=== PATIENT | female | born 1980 | race Caucasian/White ===

== ENCOUNTER 2018-12-05 14:08 | Emergency (ER) | payer OTHER ==
[~2018-12-05] VITALS: Ht 170.2 cm; Wt 81.1 kg
[~2018-12-05 14:08] MED LIST: ATEN25TA PO; BACL-19 PO; BUPR1PAT7 TD; IBUP200T49 PO; OMEP-110 PO; TIZA4CAP PO
[2018-12-05] MEDS ORDERED: KETOROLAC 30 MG/1 ML IM ONE (15:00)
--- NOTE | 2018-12-05 16:40 | NUR ---
UTILIZATION REVIEW NURSE: PT TO ED ROOM TR02 FROM LOBBY AT THIS TIME
[2018-12-05] MEDS ORDERED: KETOROLAC 30 MG/1 ML ONE (17:03)
--- NOTE | 2018-12-05 17:13 | NUR ---
AFTER MEDICATED PER ORDERS AMBULATED WITHOUT ASSISTANCE TO BATHROOM
[2018-12-05 17:23] VITALS: BP 119/79
[2018-12-05] MEDS ORDERED: ONDANSETRON ODT 4 MG ONE (17:38)
[2018-12-05] MEDS ORDERED: METHOCARBAMOL 750 MG TABLET ONE (17:38)
[2018-12-05] MEDS ORDERED: HYDROmorphone 1 MG/ML, 1ML ONE (17:39)
[2018-12-05] MEDS ORDERED: HYDROmorphone 1 MG/ML, 1ML IM ONE (18:00)
[2018-12-05] MEDS ORDERED: ONDANSETRON ODT 4 MG PO ONE (18:00)
[2018-12-05] MEDS ORDERED: METHOCARBAMOL 750 MG TABLET PO ONE (18:00)
--- NOTE | 2018-12-05 18:17 | NUR ---
Patient/Caregiver given discharge instructions and they have confirmed that they understand the instructions. Patient ambulatory with steady gait.
== END 2018-12-05 18:19 | disposition home or self-care (01) ==
LOC: ED 18:13
DX: G89.29 Other chronic pain (principal); M54.5 Low back pain; M51.26 Other intervertebral disc displacement, lumbar region; F17.200 Nicotine dependence, unspecified, uncomplicated
CPT/HCPCS: 72110; 96372; 99283; J1170; J1885; Q0162

== ENCOUNTER 2020-03-30 17:38 | Emergency (ER) | payer OTHER ==
[~2020-03-30] VITALS: Ht 172.7 cm; Wt 79.8 kg
--- NOTE | 2020-03-30 18:30 | NUR ---
PLACED IN C-COLLAR IN TRIAGE
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
--- NOTE | 2020-03-30 19:28 | NUR ---
TO CT SCAN
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
--- NOTE | 2020-03-30 19:57 | NUR ---
BACK TO CT SCAN FOR ADDITIONAL IMAGES
--- NOTE | 2020-03-30 20:36 | NUR ---
C-COLLAR REMOVED-NO ABNORMALITIES WITH ROM. CMS REMAINS INTACT
[2020-03-30] MEDS ORDERED: OXYcodone/APAP 5/325MG TABLET PO ONE (21:30)
[2020-03-30] MEDS ORDERED: OXYcodone/APAP 5/325MG TABLET ONE (21:41)
[2020-03-30 21:45] VITALS: BP 114/68
--- NOTE | 2020-03-30 21:45 | NUR ---
MEDICATED PER EMAR
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
== END 2020-03-30 22:35 | disposition home or self-care (01) ==
LOC: ED 22:23
DX: S16.1XXA Strain of muscle, fascia and tendon at neck level, initial encounter (principal); S39.012A Strain of muscle, fascia and tendon of lower back, initial encounter; S43.402A Unspecified sprain of left shoulder joint, initial encounter; F17.200 Nicotine dependence, unspecified, uncomplicated; V48.5XXA Car driver injured in noncollision transport accident in traffic accident, initial encounter; Y93.89 Activity, other specified; Y92.488 Other paved roadways as the place of occurrence of the external cause; Y99.8 Other external cause status
CPT/HCPCS: 70486; 72072; 72110; 72125; 99285

== ENCOUNTER 2020-07-05 17:23 | Emergency (ER) | payer OTHER ==
[~2020-07-05] VITALS: Ht 172.7 cm; Wt 81.1 kg
--- NOTE | 2020-07-05 17:27 | NUR ---
NO ANSWER X 1
[2020-07-05 18:10] LABS: BASOPHILS # (AUTO) 0.05 x10^3/uL (0-0.1); BASOPHILS % (AUTO) 0 % (0-1); EOSINOPHILS # (AUTO) 0.19 x10^3/uL (0-0.4); EOSINOPHILS % (AUTO) 2 % (1-7); LYMPHOCYTES # (AUTO) 2.35 x10^3/uL (1-3.4); LYMPHOCYTES % (AUTO) 20 % (22-44); MD NO; MEAN CORPUSCULAR HGB CONC 33.2 g/dL (32.4-35.8); MEAN CORPUSCULAR VOLUME 93.3 fL (80-100); MEAN PLATELET VOLUME 8.6 fL (7.4-10.4); MONOCYTES # (AUTO) 0.73 x10^3/uL (0.2-0.8); MONOCYTES % (AUTO) 6 % (2-9); NEUTROPHILS # (AUTO) 8.22 x10^3/uL (1.8-6.8); NEUTROPHILS % (AUTO) 71 % (42-75); PLATELET COUNT 333 x10^3/uL (130-400); RED CELL DISTRIBUTION WIDTH 13.1 % (9.6-15.2)
[2020-07-05 18:23] LABS: ALBUMIN 3.8 g/dL (3.4-5.0); ANION GAP 5 mmol/L (5-15); CHLORIDE 105 mmol/L (98-107)
[2020-07-05 18:27] LABS: ALKALINE PHOSPHATASE 72 U/L (45-117); BILIRUBIN,TOTAL 0.3 mg/dL (0.2-1.0); CREATININE 1.13 mg/dL (0.55-1.02)
[2020-07-05 18:30] LABS: ALANINE AMINOTRANSFERASE 23 U/L (12-78)
[2020-07-05 19:03] LABS: MICROSCOPIC AUTO
--- NOTE | 2020-07-05 19:31 | NUR ---
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
[2020-07-05] MEDS ORDERED: METH750T2 PO (19:54)
[2020-07-05] MEDS ORDERED: HYDR-3240 PO (19:54)
--- NOTE | 2020-07-05 19:54 | NUR ---
PT TO RAD, TO MEDICATE FOR PAIN UPON RETURN
[2020-07-05] MEDS ORDERED: KETOROLAC 30 MG/1 ML IM ONE (20:00)
[2020-07-05] MEDS ORDERED: HYDROmorphone 1 MG/ML, 1ML INJ IM ONE (20:00)
[2020-07-05] MEDS ORDERED: KETOROLAC 30 MG/1 ML ONE (20:14)
[2020-07-05] MEDS ORDERED: HYDROmorphone 1 MG/ML, 1ML INJ ONE (20:15)
--- NOTE | 2020-07-05 20:31 | NUR ---
PT BACK FROM RADIOLOGY. MEDICATED NOTED PER MD ORDER ON EMAR FOR 06/24 ABD/FLANK PAIN. VSS. CALL LIGHT IN REACH. FALL PRECAUTIONS IN PLACE.
[2020-07-05 21:14] VITALS: BP 113/66
== END 2020-07-05 21:24 | disposition home or self-care (01) ==
LOC: ED 19:40
DX: S39.012A Strain of muscle, fascia and tendon of lower back, initial encounter (principal); N30.00 Acute cystitis without hematuria; I10 Essential (primary) hypertension; G89.29 Other chronic pain; X58.XXXA Exposure to other specified factors, initial encounter; Y93.89 Activity, other specified; Y92.89 Other specified places as the place of occurrence of the external cause; Y99.8 Other external cause status
CPT/HCPCS: 36415; 71101; 72110; 80053; 81001; 84703; 85025; 87077; 87086; 96372; 99285; J1170; J1885